=== PATIENT | male | born 1935 | race Caucasian/White ===

== ENCOUNTER 2016-07-15 05:46 | Outpatient (CLI) | payer MEDICARE, OTHER ==
[2016-07-15 07:00] LABS: Hemoglobin A1c 5.9 % (4.0-6.0)
[2016-07-15 07:09] LABS: ALT (SGPT) 11 U/L (0-55); AST (SGOT) 14 U/L (5-34); Albumin 4.2 g/dL (3.4-4.8); Alkaline Phosphatase 76 U/L (40-150); Anion Gap 15 mmol/L (10-20); BUN (Urea Nitrogen) 11 mg/dL (8.4-25.7); Bilirubin, Direct 0.5 mg/dL (0.1-0.3); Bilirubin, Total 1.7 mg/dL (0.2-1.2); Calc. Creatinine Clearance 0 mL/min (70-130); Calcium 9.6 mg/dL (7.8-10.44); Carbon Dioxide 30 mmol/L (23-31); Cardiac Risk 2.7 (Less than 4.5); Chloride 98 mmol/L (98-107); Cholesterol 115 mg/dL (< 200 Desired); Estimated GFR-MDRD Greater than 90; Glucose 125 mg/dL (83-110); HDL Cholesterol 43 mg/dL (>60 Neg Risk); LDL Cholesterol, Calculated 50 mg/dL; Potassium 4.9 mmol/L (3.5-5.1); Protein, Total 6.7 g/dL (5.8-8.1); Sodium 138 mmol/L (136-145); Triglycerides 108 mg/dL (Less than 150)
== END 2016-07-15 05:47 | disposition home or self-care (01) ==
LOC: MADLABBHPM 05:46
PROVIDERS: ATTEND Family Medicine
DX: E11.9 Type 2 diabetes mellitus without complications (principal)
CPT/HCPCS: 36415; 80048; 80061; 80076; 83036

== ENCOUNTER 2016-10-28 05:31 | Outpatient (CLI) | payer MEDICARE, OTHER ==
[2016-10-28 06:12] LABS: Clarity Clear (Clear); Glucose, Urine (Dipstick) Negative (Negative); Leukocyte Negative (Negative); Nitrite Negative (Negative); Protein, Urine (Dipstick) Negative (Neg-Trace); Specific Gravity, Urine 1.015 (1.005-1.030); Urobilinogen 0.2 mg/dL (0.2-1.0)
[2016-10-28 06:13] LABS: Bacteria/HPF Rare-Few HPF (None Seen); Bilirubin Negative (Negative); Blood, Urine Trace (Negative); RBC/HPF 0-3 HPF (0-3); Squamous Epithelial 0-3 HPF (0-3); WBC/HPF 0-3 HPF (0-3)
[2016-10-28 06:15] LABS: #Basophils 0.1 thou/uL (0.0-0.2); #Eosinphils 0.5 thou/uL (0.0-0.7); #Lymphocytes 2.5 thou/uL (1.20-3.40); #Monocytes 0.6 thou/uL (0.11-0.59); %Basophils 0.6 % (0.0-1.0); %Eosinophils 6.2 % (0.0-10.0); %Lymphocytes 28.9 % (21.0-51.0); %Monocytes 7.1 % (0.0-10.0); %Neutrophils 57.2 % (42.0-75.0); Hemoglobin 13.9 g/dL (14.0-18.0); Mean Corpuscular HGB CONC 34.1 g/dL (32.0-36.0); Mean Corpuscular Hemoglobin 31.9 pg (27.0-31.0); Mean Corpuscular Volume 93.6 fl (80.0-94.0); Mean Platelet Volume 6.5 fL (7.4-10.4); Platelet Count 231 thou/uL (130-400); RBC Distribution Width 11.9 % (11.5-14.5); Red Blood Cell (RBC) Count 4.36 mill/uL (4.70-6.10); White Blood Cell (WBC) Count 8.6 thou/uL (4.8-10.8)
[2016-10-28 06:26] LABS: ALT (SGPT) 9 U/L (8-55); AST (SGOT) 14 U/L (5-34); Albumin 4.2 g/dL (3.4-4.8); Alkaline Phosphatase 87 U/L (40-150); Anion Gap 15 mmol/L (10-20); BUN (Urea Nitrogen) 13 mg/dL (8.4-25.7); Bilirubin, Direct 0.5 mg/dL (0.1-0.3); Bilirubin, Total 1.1 mg/dL (0.2-1.2); Calc. Creatinine Clearance 0 mL/min (70-130); Calcium 9.5 mg/dL (7.8-10.44); Carbon Dioxide 30 mmol/L (23-31); Chloride 99 mmol/L (98-107); Cholesterol 118 mg/dl (< 200 Desired); Estimated GFR-MDRD 87; Globulin 2.7 g/dL (2.4-3.5); Glucose 146 mg/dL (83-110); HDL Cholesterol 40 mg/dL (>60 Neg Risk); LDL Cholesterol, Calculated 56 mg/dL; Potassium 4.7 mmol/L (3.5-5.1); Protein, Total 6.9 g/dL (5.8-8.1); Sodium 139 mmol/L (136-145); Triglycerides 111 mg/dL (Less than 150)
[2016-10-28 06:56] LABS: Hemoglobin A1c 6.2 % (4.0-6.0)
[2016-10-28 17:13] LABS: Creatinine, Urine 82.62 mg/dL (63-166); Microalbumin Urine 1.1 mg/dL (0.5-50.0); Microalbumin/Creat Ratio 13.3 mg/g (Less than 30)
== END 2016-10-28 05:32 | disposition home or self-care (01) ==
LOC: MADLAB 05:31
PROVIDERS: ATTEND Family Medicine
DX: E78.5 Hyperlipidemia, unspecified (principal); E78.00 Pure hypercholesterolemia, unspecified; E11.9 Type 2 diabetes mellitus without complications; I25.10 Atherosclerotic heart disease of native coronary artery without angina pectoris
CPT/HCPCS: 36415; 80053; 80061; 81001; 82043; 82248; 83036; 84443; 85025

== ENCOUNTER 2017-01-27 06:17 | Outpatient (CLI) | payer MEDICARE, OTHER ==
[2017-01-27 07:16] LABS: Hemoglobin A1c 6.2 % (4.0-6.0)
[2017-01-27 08:24] LABS: ALT (SGPT) 12 U/L (8-55); AST (SGOT) 14 U/L (5-34); Albumin 4.1 g/dL (3.4-4.8); Alkaline Phosphatase 76 U/L (40-150); Anion Gap 15 mmol/L (10-20); BUN (Urea Nitrogen) 13 mg/dL (8.4-25.7); Bilirubin, Direct 0.5 mg/dL (0.1-0.3); Bilirubin, Total 1.2 mg/dL (0.2-1.2); Calc. Creatinine Clearance 0 mL/min (70-130); Calcium 9.6 mg/dL (7.8-10.44); Carbon Dioxide 27 mmol/L (23-31); Cardiac Risk 2.4 (Less than 4.5); Chloride 99 mmol/L (98-107); Cholesterol 112 mg/dl (< 200 Desired); Estimated GFR-MDRD 73; Glucose 141 mg/dL (83-110); HDL Cholesterol 46 mg/dL (>60 Neg Risk); LDL Cholesterol, Calculated 48 mg/dL; Potassium 4.8 mmol/L (3.5-5.1); Protein, Total 7.2 g/dL (5.8-8.1); Sodium 136 mmol/L (136-145); Triglycerides 88 mg/dL (Less than 150)
== END 2017-01-27 06:18 | disposition home or self-care (01) ==
LOC: MADLABBHPM 06:17
PROVIDERS: ATTEND Family Medicine
DX: E11.9 Type 2 diabetes mellitus without complications (principal)
CPT/HCPCS: 36415; 80048; 80061; 80076; 83036

== ENCOUNTER 2017-01-31 08:55 | Emergency (ER) | payer MEDICARE, OTHER ==
--- NOTE | 2017-01-31 09:48 | CT ---
NONCONTRAST HEAD CT: History: Patient slipped and fell earlier this morning. Post-traumatic pain and injury. Comparison: None. Technique: Noncontrast head CT is performed from skull base to skull vertex. FINDINGS: No parenchymal hemorrhage. No extraaxial hematoma. No midline shift. Basilar cisterns are patent. Ag e appropriate atrophy. Cortical [place] white matter differentiation is preserved. Ventricles and sulci are patent and symmetric. White matter hypodensities due to chronic small vessel ischemic changes a re noted. Calvarium is intact. Adequate aeration of the sinuses and mastoid air cells. Cavernous carotid ather osclerosis is noted. Small polyp or mucous retention cyst in the right maxillary sinus. IMPRESSION: 1. No intracranial post-traumatic sequellae. 2. Age appropriate atrophy. 3. Chronic small vessel ischemic changes of the white matter. POS: [facility]
--- NOTE | 2017-01-31 09:57 | RAD ---
TWO VIEWS LEFT SHOULDER: Date: 01-31-17 Comparison: None. History: Injury, pain. FINDINGS: A comminuted transverse fracture is seen through the proximal left humeral shaft near the humeral ne ck. The distal fracture fragment is displaced laterally by mm. There is mild posterior angulation of the distal fracture fragment and there is a displaced fracture fragment measuring 1.8 cm projecting along the posterior aspect of the fracture line on the scapula Y view. No evidence for glenohumeral joint dislocation. No widening of the AC or CC interspace. IMPRESSION: Comminuted displaced and angulated proximal left humerus fracture. POS: [facility]
== END 2017-01-31 10:45 | disposition home or self-care (01) ==
LOC: MADERS 08:55
DX: S42.202A Unspecified fracture of upper end of left humerus, initial encounter for closed fracture (principal); S51.011A Laceration without foreign body of right elbow, initial encounter; E11.39 Type 2 diabetes mellitus with other diabetic ophthalmic complication; H40.9 Unspecified glaucoma; I25.10 Atherosclerotic heart disease of native coronary artery without angina pectoris; E78.5 Hyperlipidemia, unspecified; I10 Essential (primary) hypertension; J44.9 Chronic obstructive pulmonary disease, unspecified; Z86.73 Personal history of transient ischemic attack (TIA), and cerebral infarction without residual deficits; F43.10 Post-traumatic stress disorder, unspecified; F41.9 Anxiety disorder, unspecified; F32.9 Major depressive disorder, single episode, unspecified; F51.5 Nightmare disorder; F17.210 Nicotine dependence, cigarettes, uncomplicated; Z79.82 Long term (current) use of aspirin; Z79.84 Long term (current) use of oral hypoglycemic drugs; Z79.899 Other long term (current) drug therapy; W01.198A Fall on same level from slipping, tripping and stumbling with subsequent striking against other object, initial encounter
CPT/HCPCS: 29105; 70450

== ENCOUNTER 2020-06-08 04:53 | Emergency (ER) | payer MEDICARE, OTHER ==
[2020-06-08 05:39] LABS: ALT (SGPT) 8 U/L (8-55); AST (SGOT) 17 U/L (5-34); Albumin 3.9 g/dL (3.4-4.8); Alkaline Phosphatase 101 U/L (40-110); Anion Gap 17 mmol/L (10-20); BUN (Urea Nitrogen) 16 mg/dL (8.4-25.7); Bilirubin, Total 0.6 mg/dL (0.2-1.2); CK (CPK) 43 U/L (30-200); Calc. Creatinine Clearance 0 mL/min (70-130); Calcium 8.8 mg/dL (7.8-10.44); Carbon Dioxide 24 mmol/L (23-31); Chloride 102 mmol/L (98-107); Glucose 226 mg/dL (83-110); Potassium 4.8 mmol/L (3.5-5.1); Protein, Total 6.9 g/dL (5.8-8.1); Sodium 138 mmol/L (136-145)
[2020-06-08] MEDS ORDERED: Fentanyl 100 MCG/2 ML VIAL ONE (05:39)
[2020-06-08] MEDS ORDERED: Midazolam HCl 2 mg/2 ml Vial ONE ×2 (05:39→06:34)
[2020-06-08 05:46] LABS: Red Blood Cell (RBC) Count 3.64 mill/uL (4.70-6.10); White Blood Cell (WBC) Count 15.6 thou/uL (4.8-10.8)
[2020-06-08 05:47] LABS: #Lymphocytes 4.9 thou/uL (1.20-3.40); #Monocytes 0.7 thou/uL (0.11-0.59); #Neutrophils 9.3 thou/uL (1.40-6.50); %Basophils 0.8 % (0.0-1.0); %Eosinophils 3.6 % (0.0-10.0); %Lymphocytes 31.3 % (21.0-51.0); %Monocytes 4.7 % (0.0-10.0); %Neutrophils 59.7 % (42.0-75.0); CKMB 2.9 ng/mL (0-6.6); Mean Corpuscular HGB CONC 31.9 g/dL (32.0-36.0); Mean Corpuscular Hemoglobin 30.1 pg (27.0-31.0); Mean Corpuscular Volume 94.2 fL (78.0-98.0); Mean Platelet Volume 7.3 fL (7.4-10.4); Platelet Count 244 thou/uL (130-400); RBC Distribution Width 12.1 % (11.5-14.5)
[2020-06-08 05:48] LABS: #Basophils 0.1 thou/uL (0.0-0.2); #Eosinphils 0.6 thou/uL (0.0-0.7)
[2020-06-08] MEDS ORDERED: Succinylcholine 200 MG/10 ml SYRINGE FS ONE (06:53)
[2020-06-08] MEDS ORDERED: Sodium Chloride 0.9% 1,000 ML BAG ONE (06:53)
--- NOTE | 2020-06-08 07:55 | RAD ---
Chest one view HISTORY: Intubation. Nasogastric tube placement. COMPARISON: Earlier exam on the same date. Findings tip of endotracheal catheter overlies the thoracic inlet. Nasogastric tube descends to the stomach with the proximal sidehole below the level of the diaphragm. Patchy infiltrate throughout each lung similar in appearance to the prior exam. Lung markings extend beyond a skinfold at the right apex that mimics a pneumothorax. Old right rib fractures evident. Lungs remain hyperinflated. IMPRESSION : Endotracheal catheter and nasogastric tube are in good position. Other findings are stable.
--- NOTE | 2020-06-08 09:19 | RAD ---
PORTABLE CHEST: Date: 06/08/2020 HISTORY: Dyspnea. FINDINGS: Bilateral predominantly basilar lung infiltrates are present. The most recent film I have available f or comparison is 04/26/2010 study. There are chronic lung changes. IMPRESSION: Bilateral lung infiltrates superimposed on chronic lung change. POS: [facility]
== END 2020-06-08 06:53 | disposition short-term general hospital (02) ==
LOC: MADERS 04:53
DX: J96.91 Respiratory failure, unspecified with hypoxia (principal); R79.89 Other specified abnormal findings of blood chemistry; E87.70 Fluid overload, unspecified; D72.829 Elevated white blood cell count, unspecified; E11.9 Type 2 diabetes mellitus without complications; I34.1 Nonrheumatic mitral (valve) prolapse; I25.10 Atherosclerotic heart disease of native coronary artery without angina pectoris; E78.5 Hyperlipidemia, unspecified; I10 Essential (primary) hypertension; J44.9 Chronic obstructive pulmonary disease, unspecified; F17.210 Nicotine dependence, cigarettes, uncomplicated; Z79.84 Long term (current) use of oral hypoglycemic drugs; Z86.73 Personal history of transient ischemic attack (TIA), and cerebral infarction without residual deficits; Z79.899 Other long term (current) drug therapy; Z79.82 Long term (current) use of aspirin
CPT/HCPCS: 31500; 51702; 71045; 80053; 82550; 82553; 83880; 84484; 85025; 93005; 94760; 96361; 96374; 96375; 96376; J2250; J3010; J7050; J7620